=== PATIENT | male | born 1980 | race Caucasian/White ===

== ENCOUNTER 2018-05-02 22:36 | Emergency (ER) | payer OTHER ==
[~2018-05-02] VITALS: Ht 167.6 cm; Wt 68.0 kg
[~2018-05-02 22:36] MED LIST: LEVSIN/SL0.125 MG PO; PROTONIX40 MG PO
== END 2018-05-03 10:29 | disposition home or self-care (01) ==
LOC: ER 22:36
DX: R07.89 Other chest pain (principal)